=== PATIENT | female | born 1945 | race Caucasian/White ===

== ENCOUNTER 2016-11-07 18:33 | Inpatient (IN) | payer MEDICARE, OTHER ==
[~2016-11-07] VITALS: Ht 172.7 cm; Wt 139.7 kg
--- NOTE | 2016-11-07 18:55 | NUR ---
PT BIB [facility] TO ER BED 09. HERE FOR MEDICAL AND PSYCH CLEARANCE FOR POSSIBLE ENDY PSYCH ADMISSION. PER REPORT, PT IS DEPRESSED. ISOLATING SELF AND NOT GOING TO GROUP ACTIVITY. PT DENIES SI/HI. NO ACTIVE MEDICAL COMPLAINTS AT THIS TIME. PLACED ON MONITOR. AWAITING MD MILES.
--- NOTE | 2016-11-07 19:10 | NUR ---
LIFE SKILLS WORKER AT BEDSIDE FOE BLOOD DRAW.
[2016-11-07 19:14] LABS: BASOPHILS # (AUTO) 0.1 /CMM (0.0-0.2); BASOPHILS % (AUTO) 0.9 % (0.0-2.0); EOSINOPHILS # (AUTO) 0.3 /CMM (0.0-0.7); EOSINOPHILS % (AUTO) 3.3 % (0.0-6.0); HEMATOCRIT 43 % (33-45); HEMOGLOBIN 13.9 g/dL (11.5-14.8); LYMPHOCYTES % (AUTO) 21.3 % (20.0-44.0); MEAN CORPUSCULAR HEMOGLOBIN 32 PG (26.0-33.0); MEAN CORPUSCULAR HGB CONC 33 g/dl (31.0-36.0); MEAN CORPUSCULAR VOLUME 97 fL (82-100); MONOCYTES # (AUTO) 0.6 /CMM (0.1-1.30); MONOCYTES % (AUTO) 5.8 % (2.0-12.0); NEUTROPHILS # (AUTO) 6.6 /CMM (1.8-8.9); NEUTROPHILS % (AUTO) 68.7 % (43.0-81.0); PLATELET COUNT (AUTO) 231 /CMM (150-450); RDW COEFFICIENT OF VARIATION 12.5 (11.5-15.0); RED BLOOD CELL COUNT(AUTO) 4.42 MIL/uL (4.0-5.2); WHITE BLOOD COUNT (AUTO) 9.6 K/uL (4.3-11.0)
--- NOTE | 2016-11-07 19:20 | NUR ---
PT STATES UNABLE TO PROVIDE URINE SAMPLE AT THIS TIME.
[2016-11-07 19:34] LABS: CALCIUM, SERUM 9.5 mg/dL (8.5-10.1); CARBON DIOXIDE 28 mmol/L (21-32); CHLORIDE 105 mmol/L (98-107); CREATININE 1.9 mg/dL (0.6-1.3); GLUCOSE 113 mg/dL (74-106); POTASSIUM 3.9 mmol/L (3.5-5.1); SODIUM SERUM 141 mmol/L (136-145); UREA NITROGEN, BLOOD 32 mg/dL (7-18)
[2016-11-07 19:43] LABS: ALANINE AMINOTRANSFERASE 26 U/L (12-78); ALBUMIN 3.7 g/dL (3.4-5.0); ALCOHOL, BLOOD < 3 mg/dL (0-0); ASPARTATE AMINOTRANSFERASE 22 U/L (15-37); BILIRUBIN,DIRECT 0.1 mg/dL (0.0-0.2); BILIRUBIN,TOTAL 0.3 mg/dL (0.2-1.0); TOTAL PROTEIN, SERUM 8.1 g/dL (6.4-8.2)
[2016-11-07 19:44] LABS: ACETAMINOPHEN < 10 ug/ml (10-30); SALICYLATE 1.9 mg/dL (2.8-20.0)
--- NOTE | 2016-11-07 19:54 | NUR ---
DR MUELLER AT BEDSIDE FOR EVAL.
[2016-11-07 20:31] LABS: ALKALINE PHOSPHATASE 61 U/L (46-116)
--- NOTE | 2016-11-07 21:25 | NUR ---
ROB RN AT BEDSIDE FOR PSYCH EVAL.
--- NOTE | 2016-11-07 22:25 | NUR ---
GPS/RN NOTES PT MADE AWARE OF UNIT POLICY AND PROCEDURES, PICTURES PLACED IN CHART, WOUND CONSULT TRIGGERED. INFORMED PATIENT REGARDING STAY FOR PSYCH/MED EVAL.
--- NOTE | 2016-11-07 22:27 | NUR ---
REPORT GIVEN TO DAVID. PT AWAITING TRANSFER TO FLOOR.
[2016-11-07 22:45] VITALS: BP 146/77
--- NOTE | 2016-11-07 22:45 | NUR ---
GPS/LICENSED STAFF MFT NOTES' PATIENT IS A 71 YO MORBID OBESE FEMALE WHO VOLUNTARY ADMITTED TO PSYCH DUE TO DEPRESSION, REPORTED WEAKNESS ON BUE/BLE AND REQUIRE PT EVALUATION, WITH LYMPADEMA ON BLE W/ WOUND CONSULT.PATIENT STATES PREFER TO ISOLATE SELF W/ADMITING DX:DEPRESSION AND MEDICAL DX OF HTN, DM, ST 3 KIDNEY DISEASE, CHRONIC LYMPEDEMA.PATIENT IS ALERT, ORIENTED X3, NO SOB, RESPIRATION EVEN AND UNLABORED, NO ACUTE DISTRESS NOTED, DENIES PAIN AND DISCOMFORT, DENIES PAIN AT THIS TIME, W/C BOUND/BED BOUND. PATIENT UNDER THE CARE OF FOR PSYCHIATRIC EVAL. GIVEN ORDERED/RECONCILED/CARRIED OUT ORDER. SKIN/BODY CHECK DONE. BELONGINGS INSPECTED AND PLACED BELONGINGS LAPTOP/PERSONAL BELONGINGS IN AFE LOCKED CABINET. ALL NEEDS ATTENDED. WILL CONTINUE TO MONITOR.
[2016-11-07] MEDS ORDERED: TEMAZEPAM 7.5 MG CAPSULE PO PRN (23:00)
[2016-11-07] MEDS ORDERED: ACETAMINOPHEN 325 MG TABLET PO PRN (23:00)
[2016-11-07] MEDS ORDERED: MAGNESIUM HYDROXIDE 30 ML UDC PO PRN (23:00)
[2016-11-07] MEDS ORDERED: clonazePAM 0.5 MG TABLET PO PRN (23:00)
[2016-11-07] MEDS ORDERED: MAG HYDROX/AL HYDROX/SIMETH 30 ML UDC PO PRN (23:00)
[2016-11-08] MEDS ORDERED: FURO40TA5 PO (00:01)
[2016-11-08] MEDS ORDERED: GLIM1TAB2 PO (00:01)
[2016-11-08] MEDS ORDERED: METF500T4 PO (00:01)
[2016-11-08] MEDS ORDERED: DILT180C92 PO (00:01)
[2016-11-08] MEDS ORDERED: SIMV20TA6 PO (00:01)
[2016-11-08] MEDS ORDERED: OMEG500C PO (00:13)
[2016-11-08] MEDS ORDERED: CALC-838 PO (00:13)
[2016-11-08] MEDS ORDERED: CRAN500C3 PO (00:13)
[2016-11-08] MEDS ORDERED: BISA10SU8 RC (00:13)
[2016-11-08] MEDS ORDERED: SENN-18 PO (00:13)
[2016-11-08] MEDS ORDERED: MULT1TAB73 PO (00:13)
[2016-11-08] MEDS ORDERED: CHOL200026 PO (00:13)
[2016-11-08] MEDS ORDERED: Z GUARD REMEDY 4 OZ OINT TP ONE (00:24)
[2016-11-08] MEDS ORDERED: CLONIDINE HCL 0.1 MG TABLET PO PRN (00:30)
[2016-11-08] MEDS ORDERED: DEXTROSE 50%-WATER 50 ML DISP.SYRIN IV PRN (00:30)
[2016-11-08] MEDS ORDERED: Z GUARD REMEDY 4 OZ OINT TP PRN (00:30)
[2016-11-08] MEDS ORDERED: BISACODYL SUPP (10 MG) 10 MG/SUPP.RECT SUPP.RECT RC PRN (00:30)
[2016-11-08 01:14] VITALS: BP 146/77
[2016-11-08 02:25] VITALS: BP 146/77
--- NOTE | 2016-11-08 06:04 | NUR ---
GPS/RN CLOSING NOTES PATIENT IN BED, ASLEEP, AROUSE EASILY. NO S/S OF DISCOMFORT, NO PAIN OBSERVED. RESPIRATIONS EVEN AND UNLABORED, WILL CONTINUE TO MONITOR AND ENDORSE TO AM RN FOR JUAN.
[2016-11-08 08:00] VITALS: BP 154/78
[2016-11-08 08:00] LABS: CREATININE 1.5 mg/dL (0.6-1.3)
[2016-11-08 08:12] LABS: IRON, SERUM 58 ug/dl (50-175); TOTAL IRON BINDING CAPACITY 244 ug/dl (250-450)
[2016-11-08] MEDS: BLOOD SUGAR DIAGNOSTIC 1 EACH STRIP IN SCH ×5 (08:14→21:23)
[2016-11-08] MEDS ORDERED: Z GUARD REMEDY 4 OZ OINT TP SCH (09:00)
[2016-11-08] MEDS: FUROSEMIDE 40 MG TABLET PO SCH (09:19)
[2016-11-08] MEDS: DILTIAZEM HCL CD 180 MG PO SCH (09:23)
[2016-11-08] MEDS: Z GUARD REMEDY 4 OZ OINT TP SCH (09:27)
--- NOTE | 2016-11-08 12:28 | NUR ---
WOUND CARE CONSULT: PT PRESENTS WITH INTACT SKIN AND SOME RASH/REDNESS TO INNER THIGHS AND GROIN FOLDS, PRESENT ON ADMISSION. PT IS INCONTINENT AND STATES TAKES LASIX. SOME SCALY SKIN NOTED TO BILATERAL FEET AND LOWER LEG AREAS. RECOMMENDATIONS MADE FOR SKIN PROTECTION AND CARE OF RASH. DISCUSSED WITH NURSING STAFF. PT ABLE TO ASSIST WITH TURNING AND REPOSITIONING IN BED. WILL SEE PRN. NDIAYE IN AGREEMENT WITH PLAN OF CARE. Addendum: 11/08/16 at 1230 by PORSHA MORALES WNDNU Amended: Links added.
[2016-11-08] MEDS: UREA 10% -AHA 4% CREAM 57 GM TUBE TP SCH (12:30)
--- NOTE | 2016-11-08 15:39 | NUR ---
initial Discharge Note: Patient resides at [facility] [address] [place] [address]. ([phone]). Patient would like to return to [facility] upon discharge. poultry farm worker attempted to contact patient's niece Claudia Ojeda ([phone]) however, she was unavailable. poultry farm worker left a detailed message with her direct contact information. poultry farm worker spoke to Lupe from the facility who confirmed that patient can return to the facility upon discharge and the facility will provide transportation. poultry farm worker will help form a safe and proper discharge.
[2016-11-08] MEDS: ESCITALOPRAM OXALATE (10 MG) 10 MG TABLET PO SCH (16:00)
[2016-11-08 16:06] VITALS: BP 128/68
[2016-11-08] MEDS: CLOTRIMAZOLE 1% 15 GM TUBE TP SCH (17:53)
[2016-11-08] MEDS: INSULIN REGULAR, HUMAN 100 UNIT/ML 3 ML VIAL SQ PRN ×2 (19:12→19:14)
--- NOTE | 2016-11-08 19:30 | NUR ---
RN NOTES RECEIVED PATIENT IN BED AWAKE, ALERT, ABLE TO MAKE NEEDS KNOWN. NO ACUTE DISTRESS NOTED. DENIES ANY PAIN AT THIS TIME. NO SYMPTOMS OF HYPER/HYPOGLYCEMIA. SAFETY REMINDERS GIVEN. COOPERATIVE AND CALM AT THIS TIME. WILL CONTINUE TO MONITOR Q 15 MINS AND PRN.
[2016-11-08 20:00] VITALS: BP 116/63
[2016-11-08 20:05] VITALS: BP 116/63
--- NOTE | 2016-11-08 21:23 | NUR ---
RN NOTES BS 184. PATIENT REFUSED INSULIN. PATIENT AO X 3. EDUCATION GIVEN. PATIENT STILL STRONGLY REFUSED INSULIN COVERAGE. PATIENT'S RIGHTS RESPECTED. WILL CONTINUE TO MONITOR.
[2016-11-08] MEDS: SIMVASTATIN 20 MG TABLET PO SCH (21:26)
[2016-11-08] MEDS: SENNOSIDES 8.6 MG TABLET PO SCH (21:26)
--- NOTE | 2016-11-09 06:14 | NUR ---
RN NOTES PATIENT IN BED ASLEEP, AROUSABLE. RESPIRATIONS EVEN. NO SIGNS OF PAIN NOTED. DUE MEDS GIVEN WITH NO ASE NOTED. NEEDS ATTENDED. SAFETY PRECAUTIONS AND COMFORT MEASURES IN PLACE. WILL GIVE REPORT TO DAY SHIFT FOR CONTINUITY OF CARE.
[2016-11-09] MEDS: BLOOD SUGAR DIAGNOSTIC 1 EACH STRIP IN SCH ×4 (07:30→21:22)
[2016-11-09 07:33] LABS: THYROID STIMULATING HORMONE 2.153 uIU/mL (0.358-3.74)
[2016-11-09 08:00] VITALS: BP 151/74
[2016-11-09] MEDS: DILTIAZEM HCL CD 180 MG PO SCH (08:32)
[2016-11-09] MEDS: CLOTRIMAZOLE 1% 15 GM TUBE TP SCH ×2 (08:33→16:46)
[2016-11-09] MEDS: ESCITALOPRAM OXALATE (10 MG) 10 MG TABLET PO SCH (08:33)
[2016-11-09] MEDS: UREA 10% -AHA 4% CREAM 57 GM TUBE TP SCH (08:33)
[2016-11-09] MEDS: Z GUARD REMEDY 4 OZ OINT TP SCH (09:40)
--- NOTE | 2016-11-09 10:41 | NUR ---
CALLED THE OFFICE OF DR. LUCIANA KAY FOR THE CONSULT AND LEFT A MESSAGE.
--- NOTE | 2016-11-09 11:00 | NUR ---
GPS/RN DIRECTOR OF DONOR RELATIONS AMANDA AWARE OF NEED FOR GLIPIZIDE AND METFORMIN TO BE PUT IN SYSTEM, NO NEW ORDERS AT THIS TIME.
--- NOTE | 2016-11-09 12:11 | NUR ---
GPS/RN PATIENT BS 152, REFUSED 2 UNITS REGULAR INSULIN X 3, EXPLAINED RISKS AND BENEFITS, WILL CONTINUE TO ENCOURAGE TO COMPLY WITH REGIMEN AND TREATMENTS.
[2016-11-09 15:33] VITALS: BP 128/61
--- NOTE | 2016-11-09 18:08 | NUR ---
GPS/RN PATIENT BS 144, REFUSED 2 UNITS REGULAR INSULIN X 3, EXPLAINED RISKS AND BENEFITS, WILL CONTINUE TO ENCOURAGE TO COMPLY WITH REGIMEN AND TREATMENTS.
[2016-11-09 20:00] VITALS: BP 107/61
[2016-11-09] MEDS: INSULIN REGULAR, HUMAN 100 UNIT/ML 3 ML VIAL SQ PRN (21:23)
--- NOTE | 2016-11-09 21:24 | NUR ---
pt's blood sugar 176mg/dl. pt refused insulin. explain the risk and benefits. pt still refused. will continue to monitor.
[2016-11-09] MEDS: SENNOSIDES 8.6 MG TABLET PO SCH (21:31)
[2016-11-09] MEDS: SIMVASTATIN 20 MG TABLET PO SCH (21:31)
--- NOTE | 2016-11-09 21:49 | NUR ---
PAGED DR. GORE REGARDING PT'S MEDICATION GLIPIZIDE, METFORMIN. ORDERED METFORMIN 500MG PO BID. NOTED AND CARRIED OUT.
[2016-11-10] MEDS: BLOOD SUGAR DIAGNOSTIC 1 EACH STRIP IN SCH ×2 (07:59→12:21)
[2016-11-10 08:00] VITALS: BP 156/93
[2016-11-10] MEDS: DILTIAZEM HCL CD 180 MG PO SCH (08:45)
[2016-11-10] MEDS: FUROSEMIDE 40 MG TABLET PO SCH (08:45)
[2016-11-10] MEDS: ESCITALOPRAM OXALATE (10 MG) 10 MG TABLET PO SCH (08:46)
[2016-11-10] MEDS: Z GUARD REMEDY 4 OZ OINT TP SCH (08:48)
[2016-11-10] MEDS ORDERED: METFORMIN 500 MG TABLET PO SCH (09:00)
[2016-11-10] MEDS: CLOTRIMAZOLE 1% 15 GM TUBE TP SCH (09:30)
[2016-11-10] MEDS: UREA 10% -AHA 4% CREAM 57 GM TUBE TP SCH (09:30)
--- NOTE | 2016-11-10 09:39 | NUR ---
WHITE KID BUFFER-NOTES PATIENT REFUSED LEXAPRO 5MG P.O AND REGULAR INSULIN 2 UNITS. STATED " I DON'T NEED TO TAKE THAT LEXAPRO AND THE INSULIN". EXPLAINED RISK AND BENEFITS FOR BOTH MEDICATIONS BUT PATIENT STILL REFUSED. OFFERED X3.
--- NOTE | 2016-11-10 13:08 | NUR ---
Discharge note: will discharge back to [facility] [address] [address]. ([phone]). Marc Ojeda ([phone]) was notified and agreed with the discharge plan. Pt. is calm, cooperative, alert and oriented and agrees with the plan also. Facility transportation will burr picker the patient at 8:00PM. Pt. will be followed at the facility by shuttle repairer Dr. Verdin [address] [place] [id number] [phone] Portillo[address] [facility] [id number], [place] [address] [phone]. Discharge paperwork has been signed and discharge instructions to be provided to the accepting facility.
--- NOTE | 2016-11-10 13:09 | NUR ---
COMMERCIAL REVIEW APPRAISER-NOTES PATIENT BLOOD SUGAR WAS 201 MG/DL COVERAGE OF REGULAR INSULIN 4 UNITS REFUSED . STATED " I DON'T NEED TO TAKE THE INSULIN ". EXPLAINED RISK AND BENEFITS BUT PATIENT STILL REFUSED. OFFERED X3 . NO S/SX OF HYPERGLYCEMIA AT THIS TIME. PATIENT DENIES ANY DISCOMFORT AT THIS TIME .WILL CONTINUE MONITORING.
--- NOTE | 2016-11-10 14:04 | NUR ---
TOOL DESIGNER-NOTES HEART COORDINATOR AMANDA IN THE UNIT AND MADE AWARE OF PATIENT REFUSAL OF THE INSULIN COVERAGE.
[2016-11-10 15:53] VITALS: BP 142/75
--- NOTE | 2016-11-10 17:18 | NUR ---
MATERIAL CUTTER-NOTES PATIENT WAS D/Cd TO [facility] TODAY. DR. HEMPHILL AND METAL SPINNER TREASURE AWARE AND AGREES OF PATIENT DISCHARGE. REPORT WAS GIVEN TO KANA (VP TRANSPORTATION). PATIENT DID NOT VERBALIZE SI/HI,DENIES VISUAL/AUDITORY HALLUCINATIONS AT THE TIME OF DISCHARGE. PATIENT LEFT THE UNIT IN STABLE CONDITION WITH ALL HER BELONGINGS INCLUDING WHEELCHAIR AND SOME MANCIA MONEY. PICKUP BY OMAR ([facility] HEAVY MACHINERY OPERATOR). VIA PRIVATE VAN.
== END 2016-11-10 17:19 | DRG 885 ==
LOC: ER 18:35 → GPS 22:12
PROVIDERS: ADMIT Psychiatry & Neurology Psychiatry; ATTEND Psychiatry & Neurology Psychiatry
DX: F33.1 Major depressive disorder, recurrent, moderate (principal); N17.9 Acute kidney failure, unspecified; N18.3 Chronic kidney disease, stage 3 (moderate); E46 Unspecified protein-calorie malnutrition; E11.22 Type 2 diabetes mellitus with diabetic chronic kidney disease; I12.9 Hypertensive chronic kidney disease with stage 1 through stage 4 chronic kidney disease, or unspecified chronic kidney disease; Z79.84 Long term (current) use of oral hypoglycemic drugs; K21.9 Gastro-esophageal reflux disease without esophagitis; E78.5 Hyperlipidemia, unspecified; E66.01 Morbid (severe) obesity due to excess calories; Z73.6 Limitation of activities due to disability
CPT/HCPCS: 36415; 80048-TC; 80061-TC; 80076-TC; 82565-TC; 82746; 82962-TC; 83540-TC; 83735-TC; 84443-TC; 85025-TC; A4606; G0480; J1815; Z7610